=== PATIENT | female | born 1960 | race Caucasian/White ===

== ENCOUNTER 2017-05-20 07:09 | Outpatient (CLI) | payer OTHER ==
[2017-05-20 08:14] LABS: URINE SOURCE RANDOM
[2017-05-20 08:17] LABS: URINE BILIRUBIN NEGATIVE (NEGATIVE); URINE BLOOD NEGATIVE (NEGATIVE); URINE GLUCOSE (UA) NEGATIVE (NEGATIVE); URINE KETONE NEGATIVE (NEGATIVE); URINE LEUKOCYTE ESTERASE NEGATIVE (NEGATIVE); URINE NITRATE NEGATIVE (NEGATIVE); URINE PH 5.5 (4.6 - 8.0); URINE PROTEIN NEGATIVE (NEGATIVE); URINE UROBILINOGEN 0.2 E.U./dL (0.2 - 1.0)
[2017-05-20 08:20] LABS: % EOSINOPHILS 6.2 % (0.0-5.0); % LYMPHOCYTES 34.8 % (20.0-50.0); % MONOCYTES 6.1 % (2.0-10.0); % NEUTROPHILS 52.9 % (40.0-80.0); EOSINOPHILE ABSOLUTE 0.6 Th/cmm (0.1-0.4); HEMATOCRIT 45.9 % (41.0-60); HEMOGLOBIN 15.2 gm/dL (12-16); LYMPHOCYTE ABSOLUTE 3.2 Th/cmm (1.5-3.0); MEAN CELL VOLUME 88.6 fl (81-100); MEAN CORPUSCULAR HEMOGLOBIN 29.3 pg (27.0-31.0); MEAN PLATELET VOLUME 8.5 fl; MONOCYTE ABSOLUTE 0.6 Th/cmm (0.3-1.0); NEUTROPHILE ABSOLUTE 4.9 Th/cmm (1.8-8.0); PLATELET COUNT 278 Th/cmm (150-400); RED BLOOD COUNT 5.19 Mil/cmm (3.80-5.10); RED CELL DISTRIBUTION WIDTH 12.2 % (11.5-20.0); WHITE BLOOD COUNT 9.3 Th/cmm (4.8-10.8)
[2017-05-20 08:26] LABS: URINE CLARITY CLEAR (CLEAR); URINE COLOR YELLOW
[2017-05-20 08:27] LABS: URINE MICROSCOPIC INDICATED? NO
[2017-05-20 08:41] LABS: ALB/GLOB RATIO 1.2 (1.0-1.8); ALBUMIN 4.7 gm/dL (3.7-5.3); ALKALINE PHOSPHATASE 72 U/L (34-104); AMYLASE SERUM 30 U/L (29-103); ANION GAP 9.2 (7.0-16.0); BILIRUBIN,TOTAL 0.6 mg/dL (0.3-1.0); BUN - UREA NITROGEN 17 mg/dL (7-25); CALCIUM SERUM 10.4 mg/dL (8.6-10.3); CARBON DIOXIDE 30.5 mEq/L (21.0-31.0); CHLORIDE 100 mEq/L (98-107); CHOLESTEROL 231 mg/dL (<200); CREATININE - SERUM 0.7 mg/dL (0.6-1.2); GFR AFRICAN-AMERICAN > 60.0 ml/min (>90); GFR NON AFRICAN-AMERICAN > 60.0 ml/min; GLUCOSE 89 mg/dL (70-105); HDL -HIGH DENSITY LIPOPROTEIN 59 mg/dL (23-92); LIPASE 35 U/L (11-82); POTASSIUM SERUM 3.7 mEq/L (3.5-5.1); SGOT 22 U/L (13-39); SGPT/ALT 21 U/L (7-52); SODIUM SERUM 136 mEq/L (136-145); TOTAL PROTEIN,SERUM 8.8 gm/dL (6.0-8.3); TRIGLYCERIDES 148 mg/dL (<150)
== END 2017-05-20 07:25 | disposition home or self-care (01) ==
LOC: LAB 07:09
PROVIDERS: ATTEND Family Medicine
DX: Z00.00 Encounter for general adult medical examination without abnormal findings (principal)
CPT/HCPCS: 36415-UA; 80053-TC; 80061-TC; 81003-TC; 82150-TC; 83690-TC; 84443-TC; 85025-TC

== ENCOUNTER 2017-06-06 15:35 | Outpatient (CLI) | payer OTHER ==
--- NOTE | 2017-06-07 08:45 | Diagnostic Imaging Report ---
Exam: Ultrasound summation abdomen. HISTORY: Abdominal pain. Findings: Real-time ultrasound examination abdomen performed multiple planes. The study demonstrates normal echogenicity liver parenchyma. The gallbladder distended up to 8 cm with the evidence of cholelithiasis with a calculus measuring 1.5 cm diameter. There is no evidence of pericholecystic fluid collection. Gallbladder wall measures 3 mm. Common bile duct normal at 4 mm Pancreas is intact. There is no evidence of obstructive uropathy or nephrolithiasis. The spleen is intact no free fluid is noted. IMPRESSION: cholelithiasis 1.5 cm calculus in the most dependent portion of gallbladder.
[2017-06-07 11:14] LABS: IGA SERUM - IMMUNOGLOBULIN A 367 mg/dL (87-352); IGG - IMMUNOGLOBULIN G SERUM 1519 mg/dL (700-1600); IGM - IMMUNOGLOBULIN M SERUM 123 mg/dL (26-217)
== END 2017-06-06 16:10 | disposition home or self-care (01) ==
LOC: RAD 15:35
PROVIDERS: ATTEND Family Medicine
DX: K80.80 Other cholelithiasis without obstruction (principal); E83.52 Hypercalcemia
CPT/HCPCS: 36415-UA; 76700-TC; 82784-90; 83970-90; 84439-90; 84443-TC; 84479-90; 86334-90

== ENCOUNTER 2017-11-16 08:31 | Outpatient (CLI) | payer OTHER ==
--- NOTE | 2017-11-17 09:26 | Diagnostic Imaging Report ---
Exam: Left hand x-ray HISTORY: pain Findings: Multiple views of the left hand reviewed. The study demonstrates no evidence of fracture, dislocation or soft tissue swelling. The radiocarpal joint is intact. IMPRESSION: Normal examination left hand.
--- NOTE | 2017-11-17 09:26 | Diagnostic Imaging Report ---
Exam: Right hand x-ray HISTORY: Pain Findings: Multiple views of the right hand reviewed. The study demonstrates no evidence of fracture, dislocation or soft tissue swelling. The radiocarpal joint is intact. IMPRESSION: Normal examination right hand.
== END 2017-11-16 08:45 | disposition home or self-care (01) ==
LOC: RAD 08:31
PROVIDERS: ATTEND Family Medicine
DX: M79.641 Pain in right hand (principal); M79.642 Pain in left hand
CPT/HCPCS: 73130-TC-LT; 73130-TC-RT

== ENCOUNTER 2018-05-03 07:12 | Outpatient (CLI) | payer OTHER ==
[2018-05-03 07:26] LABS: URINE SOURCE RANDOM
[2018-05-03 07:59] LABS: ALB/GLOB RATIO 1.4 (1.0-1.8); ALBUMIN 4.3 gm/dL (3.7-5.3); ALKALINE PHOSPHATASE 72 U/L (34-104); ANION GAP 12.3 (7.0-16.0); BILIRUBIN,TOTAL 0.5 mg/dL (0.3-1.0); BUN - UREA NITROGEN 17 mg/dL (7-25); CALCIUM SERUM 9.3 mg/dL (8.6-10.3); CHLORIDE 104 mEq/L (98-107); CHOLESTEROL 217 mg/dL (<200); CREATININE - SERUM 0.7 mg/dL (0.6-1.2); GFR AFRICAN-AMERICAN > 60.0 ml/min (>90); GFR NON AFRICAN-AMERICAN > 60.0 ml/min; GLUCOSE 111 mg/dL (70-105); HDL -HIGH DENSITY LIPOPROTEIN 50 mg/dL (23-92); POTASSIUM SERUM 4.3 mEq/L (3.5-5.1); SGOT 17 U/L (13-39); SGPT/ALT 15 U/L (7-52); SODIUM SERUM 140 mEq/L (136-145); TOTAL PROTEIN,SERUM 7.4 gm/dL (6.0-8.3); TRIGLYCERIDES 201 mg/dL (<150)
[2018-05-03 08:01] LABS: % BASOPHILS 0.8 % (0.0-2.0); % EOSINOPHILS 7.2 % (0.0-5.0); % LYMPHOCYTES 38.1 % (20.0-50.0); % MONOCYTES 6.3 % (2.0-10.0); % NEUTROPHILS 47.6 % (40.0-80.0); BASOPHILE ABSOLUTE 0.1 Th/cumm (0-0.2); EOSINOPHILE ABSOLUTE 0.6 Th/cmm (0.1-0.4); HEMATOCRIT 42.7 % (41.0-60); HEMOGLOBIN 14.4 gm/dL (12-16); MEAN CELL VOLUME 86.8 fl (81-100); MEAN CORPUSCULAR HEMOGLOBIN 29.2 pg (27.0-31.0); MEAN CORPUSCULAR HGB CONC 33.7 pg (28.0-36.0); MEAN PLATELET VOLUME 8.2 fl; MONOCYTE ABSOLUTE 0.5 Th/cmm (0.3-1.0); NEUTROPHILE ABSOLUTE 3.8 Th/cmm (1.8-8.0); PLATELET COUNT 280 Th/cmm (150-400); RED BLOOD COUNT 4.92 Mil/cmm (3.80-5.10); RED CELL DISTRIBUTION WIDTH 12.8 % (11.5-20.0); URINE BILIRUBIN NEGATIVE (NEGATIVE); URINE BLOOD NEGATIVE (NEGATIVE); URINE GLUCOSE (UA) NEGATIVE (NEGATIVE); URINE KETONE NEGATIVE (NEGATIVE); URINE LEUKOCYTE ESTERASE NEGATIVE (NEGATIVE); URINE NITRATE NEGATIVE (NEGATIVE); URINE PROTEIN NEGATIVE (NEGATIVE); URINE UROBILINOGEN 0.2 E.U./dL (0.2 - 1.0)
[2018-05-03 08:20] LABS: URINE CLARITY CLEAR (CLEAR); URINE COLOR YELLOW
[2018-05-03 13:50] LABS: URINE BACTERIA NONE SEEN /hpf (NONE SEEN); URINE EPITHELIAL CELLS RARE /lpf (FEW); URINE MICROSCOPIC INDICATED? YES; URINE RBC 0-2 /hpf (0-5); URINE WBC 0-2 /hpf (0-5)
--- NOTE | 2018-05-04 10:44 | Diagnostic Imaging Report ---
Pelvic ultrasound HISTORY: Pain The exam is limited to transabdominal sonographic technique as the patient declined endovaginal sonographic evaluation. The uterus is not seen consistent with patient's surgical history. The left ovary cannot be visualized. No abnormality seen in the region of the right ovary. No abnormal masses or abnormal fluid collections. IMPRESSION: 1. Limited exam associated with transabdominal sonographic technique 2. Nonvisualization of the uterus consistent with patient's surgical history 3. No abnormal masses or fluid collections
[2018-05-06 09:05] LABS: CA 125 (OVARIAN) SEE REF. LAB REPORT; CA 19-9 (PANCREATIC) SEE REF. LAB REPORT
[2018-05-06 09:06] LABS: CARCINOEMBRYONIC ANTIGEN SEE REF. LAB REPORT
== END 2018-05-03 08:12 | disposition home health service (06) ==
LOC: LAB 07:12
PROVIDERS: ATTEND Family Medicine
DX: R10.9 Unspecified abdominal pain (principal)
CPT/HCPCS: 36415-UA; 76856-TC; 80053-TC; 80061-TC; 81001-TC; 82378-90; 84443-TC; 85025-TC; 86301-90; 86304-90